=== PATIENT | female | born 1995 | race Caucasian/White ===

== ENCOUNTER 2018-03-05 14:11 | Observation (INO) | payer OTHER ==
[~2018-03-05] VITALS: Ht 167.6 cm; Wt 61.2 kg
[2018-03-05 14:28] VITALS: BP 135/85
[2018-03-05] MEDS ORDERED: ALLERGY10 M1 PO (14:30)
[2018-03-05 14:34] LABS: URINE BILIRUBIN NEGATIVE (Negative); URINE BLOOD NEGATIVE (Negative); URINE CLARITY CLEAR; URINE COLOR YELLOW; URINE GLUCOSE-RANDOM NEGATIVE (Negative); URINE KETONES NEGATIVE (Negative); URINE LEUKOCYTES-REFLEX 1+ (Negative); URINE NITRITE-REFLEX NEGATIVE (Negative); URINE PROTEIN NEGATIVE (Negative); URINE SPECIFIC GRAVITY 1.025 (1.005-1.030); URINE UROBILINOGEN 0.2 E.U./dl (0.2-1.0)
[2018-03-05 14:42] LABS: ABSOLUTE BASOPHILS 0.1 thou/uL (0.0-0.2); ABSOLUTE EOSINOPHILS 0.1 thou/uL (0.0-0.7); ABSOLUTE MONOCYTES 0.8 thou/uL (0.0-1.2); ABSOLUTE NEUTROPHILS 7.4 thou/uL (1.6-8.1); BASOPHILS 0.8 %; EOSINOPHILS 0.7 %; HEMATOCRIT 41.7 % (37.0-47.0); HEMOGLOBIN 13.9 gm/dL (12.0-15.0); LYMPHOCYTES 26.4 %; MCH 32.7 pg (26.0-34.0); MCHC 33.5 g/dL (28.0-37.0); MCV 97.7 fL (80.0-100.0); MONOCYTES 7.3 %; MPV 9.5 fl. (7.2-11.1); NUCLEATED RBCS 0 /100WBC; PLATELET COUNT* 211 thou/uL (150-400); POLYS 64.8 %; RBC 4.26 mil/uL (4.20-5.00); RDW-CV 12.8 % (10.5-14.5); WBC 11.5 thou/uL (4.0-11.0)
[2018-03-05 14:49] LABS: SQUAMOUS >10 Many /LPF (0-3)
[2018-03-05 14:50] LABS: CASTS None Seen /LPF (None Seen); CRYSTALS None Seen /LPF (None Seen); MUCUS 0-3 Light strn/LPF (None Seen); URINE RBC None Seen /HPF (0-2); URINE WBC-REFLEX 0-5 Rare /HPF (0-5)
[2018-03-05 14:50] LABS: CALCIUM 8.9 mg/dL (8.5-10.1); CREATININE 0.8 mg/dL (0.6-1.3); POTASSIUM 3.1 mmol/L (3.5-5.1)
[2018-03-05 14:54] LABS: ALBUMIN 4.5 g/dL (3.4-5.0); TOTAL BILIRUBIN 0.5 mg/dL (<0.1-1.0)
[2018-03-05 16:30] VITALS: BP 126/78
[2018-03-05 18:45] VITALS: BP 108/58
[2018-03-05 20:30] VITALS: BP 103/68
[2018-03-06 00:32] VITALS: BP 99/58
[2018-03-06 04:46] VITALS: BP 84/42
[2018-03-06 05:05] VITALS: BP 94/41
--- NOTE | 2018-03-06 05:48 | NUR ---
ALERT AND ORIENTED X4. UP AD MENDEL WITHOUT DIFFICULTY. NAUSEA MEDICATION GIVEN X1 AND HELPFUL. DENIED NEED FOR PAIN MEDICATION WHEN OFFERED. LAP SITES HAS SURGICAL GLUE INTACT. VOIDING WITHOUT DIFFICULTY. CALL LIGHT WITHIN REACH.
[2018-03-06 09:33] VITALS: BP 100/58
[2018-03-06 12:32] VITALS: BP 100/58
[2018-03-06] MEDS ORDERED: NORCO 5-325 TA1 EACH PO (12:37)
--- NOTE | 2018-03-06 13:05 | NUR ---
ASSUMED CARE OF PATIENT AFTER MORNING REPORT AT APPROX 0720. ALERT AND ORIENTED X4. ASSESSMENT COMPLETED AND CHARTED. VSS ON ROOM AIR. PATIENT HAS HAD NO COMPLAINTS OF PAIN, NAUSEA, OR SOA. SURGERY CLEARED FOR DISCHARGE TODAY. PATIENT DISCHARGED AT 1300, ALL PERSONAL BELONGINGS, PRESCRIPTION AND DISCHARGE INFORMATION SENT WITH PATIENT UPON DISCHARGE.
--- NOTE | 2018-03-12 07:10 | PATH ---
[address] [address] PATHOLOGY RPT PROCEDURE Name: MISSY BHAKTA Room: [address] Brina#: [id number] Admission: 03/05/18 Date of : 89 Discharge: 03/06/18 Report #: [id number] Path Case #: [id number] [facility] Accession Number: [id number] . 01 Material submitted: . APPENDIX . 01 Clinical history: . Acute appendix . 02 Diagnosis: Appendix: - Acute appendicitis, periappendicitis, and serositis. (JOVANY:ele; 03/10/2018) QMS/03/10/2018 . 02 Electronically signed: . Eddie Nielsen MD, Pathologist NPI- [id number] . 01 Gross description: . The specimen is received in formalin, labeled "Bhakta, Missy, appendix" and consists of an appendix measuring 6.5 cm in length and ranging from 0.6-1.3 cm in diameter. There is a small amount of mesoappendix measuring 4.0 x 0.5 cm. The serosa is cyr-jimenez and shiny near the proximal stapled margin which variegates to jimenez and dull with adhesions towards the distal tip. Sectioning reveals a pinpoint to patent lumen containing brown amorphous material. Front Desk Administrator sections are submitted in A1-A2. (SDY; 03/08/2018) SYU/SYU . 02 Pathologist provided ICD-10: K35.80 . 02 CPT . 508174 Performed at: [address], [place], [place] [id number] MD Eleuterio Browne MD Phone: [phone] Performed at: [address] [address] [address] [place], [place] [id number] MD Eddie Nielsen MD Phone: [phone]
--- NOTE | 2018-03-23 07:48 | OP ---
[facility] [address] [place] [address] OPERATIVE REPORT Name: JAVIER BHAKTA Room: [address] Dania Gonsalves#: [id number] Admission: 03/05/18 Attend Phys: Patrick Wall Discharge: 03/06/18 Date of : 89 Report #: [id number] THIS REPORT FOR: //name// CC: ESTHER physician/PCP Patrick Wall DATE OF SERVICE: 03/05/2018 PREOPERATIVE DIAGNOSIS: Acute appendicitis. POSTOPERATIVE DIAGNOSIS: Acute appendicitis. PROCEDURE: Laparoscopic appendectomy. SURGEON: Patrick Wall MD ANESTHESIA: General. ESTIMATED BLOOD LOSS: Minimal. SPECIMENS: Appendix. DESCRIPTION OF PROCEDURE: After informed consent was obtained, the patient was brought to the operating room and placed supine. SCDs were placed and working, preoperative antibiotics were administered, general anesthesia was induced. The abdomen was prepped and draped in the usual sterile fashion. A 10 mm incision was made below the umbilicus. Fascia was incised and a trocar was placed. Pneumoperitoneum established. A right upper quadrant and a left lower quadrant 5 mm port was placed. The appendix was visualized. The appendix was mobilized medially. I made a window in the mesoappendix. The mesoappendix was ligated with a DIDI white load stapler. I then stapled the base of the appendix with a DIDI purple load stapler. The appendix was removed through an Endopouch. There was good hemostasis. The fascia was then closed with a iavvvw-ka-niyer 0 Vicryl. Skin was closed with 4-0 Monocryl. Incisions were sealed with Dermabond. COMPLICATIONS: None. DISPOSITION: The patient was taken to recovery in satisfactory condition. <ELECTRONICALLY SIGNED> By: Patrick Wall MD 03/23/18 0748 [id number] Wall MD /nt
== END 2018-03-06 13:00 | disposition home or self-care (01) ==
LOC: M.ERS 14:11 → M.TBA-ER 16:20 → M.ORTHSURG 16:20
PROVIDERS: Nurse Practitioner Family; ADMIT Surgery
DX: K35.80 Unspecified acute appendicitis (principal); F12.90 Cannabis use, unspecified, uncomplicated; F17.210 Nicotine dependence, cigarettes, uncomplicated; Z88.1 Allergy status to other antibiotic agents; Z79.899 Other long term (current) drug therapy; Z72.89 Other problems related to lifestyle